=== PATIENT | male | born 1975 | race Caucasian/White ===

== ENCOUNTER 2019-07-09 21:12 | Emergency (ER) | payer BC ==
[2019-07-09] MEDS ORDERED: Sodium Chloride 0.9% 10 ML Syringe FLUSH PRN (21:37)
[2019-07-09] MEDS ORDERED: HYDROmorphone 2 MG/ML Syringe IVPUSH ONE (21:37)
[2019-07-09] MEDS ORDERED: Sodium Chloride 0.9% 1,000 ML IV SCH (21:45)
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
[2019-07-09] MEDS ORDERED: fentaNYL 250 MCG/5 ML SDV IVPUSH STA (22:58)
== END 2019-07-09 22:25 ==
LOC: LB.ED 21:12
DX: S71.131A Puncture wound without foreign body, right thigh, initial encounter (principal); W26.0XXA Contact with knife, initial encounter
CPT/HCPCS: 36415; 80053; 80307; 85025; 85610; 96374; 99284-25; 99285; A0425; A0429; J3010; J7030